=== PATIENT | female | born 1990 | race Caucasian/White ===

== ENCOUNTER 2018-03-10 15:19 | Emergency (ER) | payer OTHER ==
[2018-03-10] MEDS ORDERED: PREDNISONE 20 MG TABLET PO ONE (15:32)
[2018-03-10] MEDS ORDERED: FAMOTIDINE 20 MG TABLET PO ONE (15:32)
[2018-03-10] MEDS ORDERED: DIPHENHYDRAMINE HCL 50 MG CAPSULE PO ONE (15:32)
[2018-03-10] MEDS ORDERED: LORAZEPAM 1 MG TABLET PO ONE (15:36)
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
[2018-03-10 17:20] VITALS: BP 105/67
== END 2018-03-10 17:21 | disposition home or self-care (01) ==
LOC: ER 15:19
DX: L50.0 Allergic urticaria (principal); V49.60XA Unspecified car occupant injured in collision with unspecified motor vehicles in traffic accident, initial encounter; W22.10XA Striking against or struck by unspecified automobile airbag, initial encounter; R00.0 Tachycardia, unspecified
CPT/HCPCS: 99283; J7512